=== PATIENT | female | born 1945 | race Caucasian/White ===

== ENCOUNTER 2018-06-03 02:49 | Inpatient (IN) | payer MEDICAID ==
[~2018-06-03] VITALS: Ht 167.6 cm; Wt 133.4 kg
[~2018-06-03 02:49] MED LIST: APIX5TAB PO; ASPI81CH43 PO; ATOR20TA50 PO; CAR3125T PO; DIGO0.1262 PO; DILT180C88 PO; FLUC100T34 PO; FLUT250M2 INH; FURO40TA4 PO; HYDR-531 PO; INSU1INJ4 SC; KETO0.025 EACHEYE; LETR2.5T PO; LEVO750T2 PO; LORA-654 PO; MONT10TA34 PO; NORT25CA PO; PANT40T PO; POTA20TA53 PO
[2018-06-03 06:53] LABS: Chloride 94 mmol/L (98-107); Sodium 135 mmol/L (136-145)
[2018-06-03 07:04] LABS: Alanine Aminotransferase 25 U/L (13-56); Albumin 3.3 g/dL (3.4-5.0); Alkaline Phosphatase 76 U/L (45-117); Anion Gap 7 (5-15); Aspartate Aminotransferase 18 U/L (15-37); BUN/Creatinine Ratio 47.1; Bilirubin, Total 0.6 mg/dL (0.2-1.0); Blood Alcohol < 3.0 mg/dL (0-5); Blood Urea Nitrogen 41 mg/dL (7-18); Calcium 9.8 mg/dL (8.5-10.1); Carbon Dioxide 34 mmol/L (21-32); GFR African American > 60 mL/min; GFR Non-African American > 60 mL/min; Glucose 245 mg/dL (74-106); Magnesium 1.5 mg/dL (1.6-2.6); Total Protein 7.3 g/dL (6.4-8.2)
[2018-06-03 07:56] LABS: Basophils # (auto) 0 uL; Basophils % (auto) 0.3 % (0.0-2.0); Eosinophils # (auto) 0.1 uL; Eosinophils % (auto) 1.4 % (0.0-7.0); Hematocrit 44.6 % (36.0-46.0); Hemoglobin 14.3 g/dL (12.2-16.2); Lymphocytes # (auto) 0.9 uL; Lymphocytes % (auto) 13.1 % (10.0-50.0); Mean Corpuscular Hemoglobin 27.6 pg (28.0-32.0); Mean Corpuscular Hgb Conc. 32.1 g/dL (32.0-36.0); Monocytes # (auto) 0.5 uL; Monocytes % (auto) 7.7 % (0.0-12.0); Neutrophils # (auto) 5.5 uL; Neutrophils % (auto) 77.5 % (37.0-80.0); Nucleated Red Blood Cells % 0.1 %; Platelet Count (auto) 153 10^3/uL (140-450); Red Blood Cells 5.19 10^6/uL (4.0-5.20); Red Cell Distribution Width 14.5 % (11.8-14.3); White Blood Cell 7.1 10^3/uL (4.4-10.8)
[2018-06-03 08:15] LABS: INR 1.07 (0.9-1.15); Partial Thromboplastin Time 25.3 sec (23.78-33.04); Prothrombin Time 11.4 sec (9.27-12.13)
[2018-06-03] MEDS ORDERED: MAGNESIUM SULFATE 1GM/100ML 100 ML IV ONE (08:36)
[2018-06-03 08:52] LABS: Urine Bacteria FEW /hpf (None Seen); Urine Blood Negative /uL (Negative); Urine Hyaline Cast MOD /lpf (0 - 2); Urine Mucus FEW (None Seen); Urine Specific Gravity 1.014 (1.001-1.035); Urine WBC 2 /hpf (0 - 5)
[2018-06-03 08:54] LABS: Alcohol, Urine < 3.0 mg/dL (0-5); Amphetamine Screen, Urine NEGATIVE (NEGATIVE); Barbiturate Scree,Urine NEGATIVE (NEGATIVE); Benzodiazephine Screen, Urine NEGATIVE (NEGATIVE); Cannabinoid Screen, Urine NEGATIVE (NEGATIVE); Cocaine Screen, Urine NEGATIVE (NEGATIVE); Opiate Scree,Urine POSITIVE (NEGATIVE); Phencyclidine Screen, Urine NEGATIVE (NEGATIVE)
[2018-06-03] MEDS: MAGNESIUM SULFATE 1GM/100ML 100 ML IV SCH ×2 (09:19→10:30)
[2018-06-03] MEDS ORDERED: NITROGLYCERIN 0.4 MG SL TAB SL PRN (14:15)
[2018-06-03] MEDS ORDERED: MORPHINE SULFATE 4 MG/ML SYR/VIAL IV PRN (14:15)
[2018-06-03] MEDS ORDERED: ONDANSETRON HCL 4 MG/2 ML VIAL IV PRN (14:15)
[2018-06-03] MEDS ORDERED: DEXTROSE (50%) 50ML SYRG IV PRN (14:30)
[2018-06-03] MEDS: SODIUM CHLORIDE 0.9% 1,000 ML IV SCH (15:15)
[2018-06-03] MEDS: ACCU-CHEK COMFORT CURVE STRIP VI SCH ×2 (17:59→21:47)
[2018-06-03] MEDS: InsuLIN REG 1unit/0.01ml Soln (100units/ml) SC SCH ×2 (18:00→21:47)
[2018-06-03 18:54] VITALS: BP 124/76
--- NOTE | 2018-06-03 19:15 | NUR ---
Opening Shift Note Received report from Nancy BEACH. Assumed care of patient, awake and alert to self and date only. No S/S of distress/SOB or pain. Instructed on POC and to call for assist PRN. Bed in lowest position, side rails up x2, bed alarm on, call light in reach, will continue to monitor for changes Q1hr and PRN.
[2018-06-03] MEDS: ATORVASTATIN 20 MG TAB PO SCH (21:46)
[2018-06-03] MEDS: APIXABAN 5 MG TAB PO SCH (21:46)
[2018-06-03] MEDS: CARVEDILOL 3.125 MG TAB PO SCH (21:47)
[2018-06-03 21:49] VITALS: BP 135/62
--- NOTE | 2018-06-03 22:36 | NUR ---
MRSA swab sent.
--- NOTE | 2018-06-03 23:30 | NUR ---
Patient is confused stating when can she go out from the senior care, she needs to bail out, kept yelling. Patient reoriented and kept comfortable.
[2018-06-04] MEDS: SODIUM CHLORIDE 0.9% 1,000 ML IV SCH ×3 (00:30→20:45)
[2018-06-04] MEDS: MORPHINE SULFATE 4 MG/ML SYR/VIAL IV PRN ×2 (01:29→23:00)
[2018-06-04] MEDS: HYDROcodone-ACET 5/325MG TAB PO PRN (04:25)
[2018-06-04 05:06] VITALS: BP 138/74
[2018-06-04] MEDS: ACCU-CHEK COMFORT CURVE STRIP VI SCH ×4 (06:33→21:50)
[2018-06-04] MEDS: InsuLIN REG 1unit/0.01ml Soln (100units/ml) SC SCH ×4 (06:34→21:51)
--- NOTE | 2018-06-04 07:40 | NUR ---
opening patient in bed, asleep, bed in lowest position will f/u with morning assessment
--- NOTE | 2018-06-04 07:50 | NUR ---
Patient resting at this time, no sob or pain. Endorsed care to Yaquelin BEACH.
[2018-06-04 09:00] VITALS: BP 140/88
[2018-06-04] MEDS ORDERED: DILTIAZEM HCL 180MG ER CAP PO SCH (10:00)
--- NOTE | 2018-06-04 10:44 | NUR ---
WOUND CARE NOTE: Wound care into see patient per wound care request regarding "foot ulcer" that are noted present on admission. Bedside nurse took photograph of patient's multiple skin integrity issue upon admission for reference. Patient is 72 years old female with admitting diagnosis of Metabolic Encephalopathy. She's awake, alert, able to follow direction and able to verbalize needs. She needs assistance in turning and repositioning and her current Jatin score is13. Patient is in no stated pain at this time. Skin assessment done with the help of nurse orthotic assistant. Patient is obese and has deep skin folds. She has multiple intertriginous rashes to skin fold area of legs, abdomen, groin, breast and intragluteal fold. She has 2.5x2cm Open full thickness no measurable depth, Stage 3 pressure injury to R plantar heel area. Wound is red with yellow hyperkeratotic skin to trang wound, no drainage/odor noted. Cleansed with wound cleanser,patted dry with gauze, applied Thera honey gel and covered with Opti foam gentle dressing. Her L lateral foot has 5x2cm intact brown scab, appears to be from old resolving wound, area is clean and dry,left open to air. Her posterior thigh has blanchable redness with scattered old ecchymosis, dry hyperkeratotic skin. Nurse's aid states that she will give patient a bath bath later so application of Barrier cream to skin fold will be done later. Repositioned patient for comfort. Patient tolerated well. RECOMMENDATION: EOD/PRN dressing change to R plantar foot wound, BID/PRN cleaning and application of Barrier cream to sacral/buttocks, intergluteal fold and other skin folds intertrigo per MD order, Dietary consult, frequent turning and repositioning schedule as condition permits, redistribute pressure points with pillows, Bariatric air bed (ordered), continue monitoring by wound care while patient is hospitalized. Addendum: 06/04/18 at 1626 by Pat Wilkinson RN Amended: Links added.
[2018-06-04] MEDS: LEVOFLOXACIN 750MG 150 ML IV SCH (11:10)
[2018-06-04] MEDS: MONTELUKAST SODIUM 10 MG TAB PO SCH (11:11)
[2018-06-04] MEDS: MULTIPLE VITAMIN TAB PO SCH (11:11)
[2018-06-04] MEDS: APIXABAN 5 MG TAB PO SCH ×2 (11:11→21:49)
[2018-06-04] MEDS: ASPirin 81 mg TAB PO SCH (11:11)
[2018-06-04] MEDS: CARVEDILOL 3.125 MG TAB PO SCH ×2 (11:13→21:50)
[2018-06-04 13:00] VITALS: BP 122/74
[2018-06-04] MEDS: LORazepam 0.5 MG TAB PO PRN (16:15)
[2018-06-04 17:00] VITALS: BP 109/61
[2018-06-04] MEDS: ENSURE CLEAR Mixed Berry 8oz Carton PO SCH (18:04)
--- NOTE | 2018-06-04 18:40 | NUR ---
closing patient awake in bed, eating dinner, bed in lowest position, call light within reach. Will endorse care to [facility] nurse at 1900.
--- NOTE | 2018-06-04 19:15 | NUR ---
Opening Shift Note Received report from Yaquelin BEACH. Assumed care of patient, awake and alert. No S/S of distress/SOB or pain. Instructed on POC and to call for assist PRN. Fall precaution measures in place, will continue to monitor for changes Q1hr and PRN.
[2018-06-04] MEDS: ATORVASTATIN 20 MG TAB PO SCH (21:50)
[2018-06-04 22:11] VITALS: BP 132/107
--- NOTE | 2018-06-04 22:15 | NUR ---
Patient transferred to Bariatric bed.
[2018-06-05 05:36] VITALS: BP 137/98
[2018-06-05] MEDS: SODIUM CHLORIDE 0.9% 1,000 ML IV SCH ×2 (06:25→12:12)
[2018-06-05] MEDS: InsuLIN REG 1unit/0.01ml Soln (100units/ml) SC SCH ×4 (06:50→22:00)
[2018-06-05] MEDS: ACCU-CHEK COMFORT CURVE STRIP VI SCH ×4 (06:50→22:00)
--- NOTE | 2018-06-05 07:30 | NUR ---
Care endorsed to Bebo BEACH.
[2018-06-05] MEDS: ENSURE CLEAR Mixed Berry 8oz Carton PO SCH ×2 (08:00→18:45)
--- NOTE | 2018-06-05 08:00 | NUR ---
Opening Shift Note Assumed care of patient, awake and alert. No S/S of distress/SOB, 10/10 chronic back pain. Will medicate with Morphine IV as ordered. Turned to sides every 2 hours. Instructed on POC and to call for assist PRN, will continue to monitor for changes Q1hr and PRN.
[2018-06-05] MEDS: MORPHINE SULFATE 4 MG/ML SYR/VIAL IV PRN (08:09)
--- NOTE | 2018-06-05 09:00 | NUR ---
Patient refused blood drawn at this time. Dr. Hernández made aware.
[2018-06-05 09:34] LABS: Folate (Folic Acid) 11.89 ng/mL (5.38-24)
[2018-06-05 09:41] VITALS: BP 117/87
[2018-06-05] MEDS: LEVOFLOXACIN 750MG 150 ML IV SCH (09:43)
[2018-06-05] MEDS: APIXABAN 5 MG TAB PO SCH ×2 (09:44→22:35)
[2018-06-05] MEDS: DIGOXIN 0.125 MG TAB PO SCH (09:44)
[2018-06-05] MEDS: PANTOPRAZOLE 40 MG TAB PO SCH (09:44)
[2018-06-05] MEDS: MULTIPLE VITAMIN TAB PO SCH (09:44)
[2018-06-05] MEDS: POTASSIUM CHL 20 Meq TABLET PO SCH (09:44)
[2018-06-05] MEDS: ASPirin 81 mg TAB PO SCH (09:44)
[2018-06-05] MEDS: CARVEDILOL 3.125 MG TAB PO SCH ×2 (09:45→22:36)
[2018-06-05] MEDS: FUROSEMIDE 40 MG TAB PO SCH (09:46)
[2018-06-05] MEDS: MONTELUKAST SODIUM 10 MG TAB PO SCH (09:46)
[2018-06-05] MEDS ORDERED: ALBUTEROL SULF 2.5 MG/0.5ML(0.5%) NEB SOLN NEB PRN (12:00)
[2018-06-05] MEDS ORDERED: IPRATROPIUM BROM 0.5 MG/2.5ML INH SOL NEB PRN (12:00)
--- NOTE | 2018-06-05 12:25 | NUR ---
NUTRITION CONSULT/ASSESSMENT NOTES Please refer to link notes of nutrition screen form filed under the intervention section of the plan of care for further details. Est. Needs based on AdBW (77 kg): 1550 kcal to 1950 kcal (20-25 kcal/kgAdBW), 77 gms to 100 gms pro (1.0-1.3 gms/kgAdBW for wound healing). Will continue to monitor pertinent labs and reassess nutrient needs prn Thank you for this consult. Addendum: 06/05/18 at [address] Amended: Links added.
[2018-06-05] MEDS: HYDROcodone-ACET 5/325MG TAB PO PRN (12:49)
[2018-06-05 13:22] LABS: Basophils # (auto) 0 uL; Basophils % (auto) 0.9 % (0.0-2.0); Eosinophils # (auto) 0.2 uL; Eosinophils % (auto) 3.4 % (0.0-7.0); Hematocrit 42.3 % (36.0-46.0); Hemoglobin 13.7 g/dL (12.2-16.2); Lymphocytes # (auto) 1.5 uL; Lymphocytes % (auto) 28.6 % (10.0-50.0); Mean Corpuscular Hemoglobin 27.3 pg (28.0-32.0); Mean Corpuscular Hgb Conc. 32.3 g/dL (32.0-36.0); Mean Corpuscular Volume 84.5 fL (80.0-100.0); Monocytes # (auto) 0.4 uL; Monocytes % (auto) 8.1 % (0.0-12.0); Neutrophils # (auto) 3.2 uL; Nucleated Red Blood Cells % 0.1 %; Platelet Count (auto) 162 10^3/uL (140-450); Red Blood Cells 5.01 10^6/uL (4.0-5.20); Red Cell Distribution Width 14.8 % (11.8-14.3); White Blood Cell 5.4 10^3/uL (4.4-10.8)
[2018-06-05 13:33] LABS: Anion Gap 4 (5-15); BUN/Creatinine Ratio 23.1; Blood Urea Nitrogen 12 mg/dL (7-18); Calcium 9.9 mg/dL (8.5-10.1); Carbon Dioxide 35 mmol/L (21-32); Chloride 99 mmol/L (98-107); Glucose 209 mg/dL (74-106); Potassium 3.9 mmol/L (3.5-5.1); Sodium 138 mmol/L (136-145)
[2018-06-05 13:38] VITALS: BP 129/75
[2018-06-05 13:49] LABS: GFR African American > 60 mL/min; GFR Non-African American > 60 mL/min
[2018-06-05 17:17] VITALS: BP 127/77
--- NOTE | 2018-06-05 19:00 | NUR ---
Respiratory note: PT ALERT AND AWAKE. PT HR 107 RR 18 SPO2 100% ON 2LPM NC BS CLEAR DIMINISHED BILATERALLY. PRN MED NEB TX NOT INDICATED AT THIS TIME. PT REMAINS STABLE WILL CONTINUE TO MONITOR PT ORDERED.
--- NOTE | 2018-06-05 19:45 | NUR ---
open note assumed care of pt. upon entering room pt eyes closed, breathing even and unlabored, o2 at 2L NC running. no s/s distress noted. call light in reach. will continue to monitor.
[2018-06-05 21:35] VITALS: BP 127/77
[2018-06-05] MEDS: ASCORBIC ACID 500 MG TAB PO SCH (22:35)
[2018-06-05] MEDS: ATORVASTATIN 20 MG TAB PO SCH (22:35)
[2018-06-05 22:59] VITALS: BP 143/83
[2018-06-06] MEDS: LORazepam 0.5 MG TAB PO PRN ×2 (02:10→21:48)
[2018-06-06] MEDS: LACTULOSE 20Gm/30ML SOLN PO PRN ×2 (03:18→10:47)
[2018-06-06] MEDS: SODIUM CHLORIDE 0.9% 1,000 ML IV SCH (04:25)
[2018-06-06 05:24] VITALS: BP 125/61
[2018-06-06] MEDS: MORPHINE SULFATE 4 MG/ML SYR/VIAL IV PRN (05:40)
[2018-06-06] MEDS: InsuLIN REG 1unit/0.01ml Soln (100units/ml) SC SCH ×4 (06:42→21:48)
[2018-06-06] MEDS: ACCU-CHEK COMFORT CURVE STRIP VI SCH ×4 (06:42→21:47)
--- NOTE | 2018-06-06 07:10 | NUR ---
Opening Shift Note Assumed care of patient, sleeping, respirations even with no S/S of distress. N/C intact and delivering 2L O2. Call light within reach, will continue to monitor for changes Q1hr and PRN.
[2018-06-06 07:30] VITALS: BP 107/54
--- NOTE | 2018-06-06 07:31 | NUR ---
PT AWAKE AND ALERT AT THIS TIME IN NO RESPIRATORY DISTRESS. PT WAS ASSESSED FOR PRN MED NEB TX. PT. IS ON 2 L NC WITH A SPO2 100%, WITH DIMINISHED BS, HR 7378, RR 22. PT MADE AWARE OF PRN MED NEB. WILL CONTINUE TO MONITOR PT.
[2018-06-06] MEDS: ENSURE CLEAR Mixed Berry 8oz Carton PO SCH ×2 (08:00→18:00)
--- NOTE | 2018-06-06 08:06 | NUR ---
Per Siobhan SANDOVAL, patient is refusing blood pressure assessment at this time. Will attempt again in 1 hour
[2018-06-06 09:00] VITALS: BP 154/68
[2018-06-06] MEDS ORDERED: DOCUSATE SOD 100 MG CAP PO ONE (10:45)
[2018-06-06] MEDS: PANTOPRAZOLE 40 MG TAB PO SCH (10:47)
[2018-06-06] MEDS: FUROSEMIDE 40 MG TAB PO SCH (10:47)
[2018-06-06] MEDS: ASCORBIC ACID 500 MG TAB PO SCH ×2 (10:47→21:47)
[2018-06-06] MEDS: DIGOXIN 0.125 MG TAB PO SCH (10:47)
[2018-06-06] MEDS: ASPirin 81 mg TAB PO SCH (10:47)
[2018-06-06] MEDS: MONTELUKAST SODIUM 10 MG TAB PO SCH (10:47)
[2018-06-06] MEDS: APIXABAN 5 MG TAB PO SCH ×2 (10:48→21:47)
[2018-06-06] MEDS: CARVEDILOL 3.125 MG TAB PO SCH ×2 (10:48→21:46)
[2018-06-06] MEDS: MULTIPLE VITAMIN TAB PO SCH (10:48)
[2018-06-06] MEDS: POTASSIUM CHL 20 Meq TABLET PO SCH (10:48)
--- NOTE | 2018-06-06 12:03 | NUR ---
I faxed SNF order to [facility], [facility], [facility], [facility] and [facility] Hern[facility]dez.
[2018-06-06 13:00] VITALS: BP 123/87
[2018-06-06] MEDS ORDERED: MAGNESIUM SULFATE 1GM/100ML 100 ML IV ONE (13:30)
--- NOTE | 2018-06-06 15:47 | NUR ---
CALLED [facility] TO FOLLOW UP ON SNF PLACEMENT, NO BEDS AVAILABLE YET.
[2018-06-06 17:00] VITALS: BP 107/70
--- NOTE | 2018-06-06 19:50 | NUR ---
Opening Shift Note Assumed care of patient, awake and alert. No S/S of distress/SOB or pain. Instructed on POC and to call for assist PRN. Bed in lowest locked position, call light within reach, side rails up x2. Will continue to monitor for changes Q1hr and PRN.
--- NOTE | 2018-06-06 21:25 | NUR ---
RT NOTE PT WAS SEEN BY RT FOR PRN HHN TX. PT STATES NO TREATMENT NEEDED AT THIS TIME. NO SOB OR DISTRESS NOTED. NO TREATMENT INDICATED. HR 103, RR 18, BS CLEAR/DIM, POX 97%. PT AWARE TO CALL IF TX NEEDED. CONT ORDERED Addendum: 06/06/18 at 2317 by Kelsey Shin RT Amended: Links added.
[2018-06-06] MEDS: DOCUSATE SOD 100 MG CAP PO SCH (21:46)
[2018-06-06] MEDS: ATORVASTATIN 20 MG TAB PO SCH (21:47)
[2018-06-06 22:40] VITALS: BP 112/72
[2018-06-06] MEDS: HYDROcodone-ACET 5/325MG TAB PO PRN (23:56)
[2018-06-07] VITALS (8 sets, daily range): BP systolic 103–133; BP diastolic 59–96
[2018-06-07] MEDS: ACCU-CHEK COMFORT CURVE STRIP VI SCH ×4 (06:48→22:01)
[2018-06-07] MEDS: InsuLIN REG 1unit/0.01ml Soln (100units/ml) SC SCH ×4 (06:49→22:02)
[2018-06-07] MEDS: ENSURE CLEAR Mixed Berry 8oz Carton PO SCH ×2 (08:00→18:00)
[2018-06-07] MEDS: APIXABAN 5 MG TAB PO SCH ×2 (09:37→21:59)
[2018-06-07] MEDS: MONTELUKAST SODIUM 10 MG TAB PO SCH (09:37)
[2018-06-07] MEDS: ASCORBIC ACID 500 MG TAB PO SCH ×2 (09:37→22:01)
[2018-06-07] MEDS: ASPirin 81 mg TAB PO SCH (09:37)
[2018-06-07] MEDS: PANTOPRAZOLE 40 MG TAB PO SCH (09:38)
[2018-06-07] MEDS: POTASSIUM CHL 20 Meq TABLET PO SCH (09:38)
[2018-06-07] MEDS: DOCUSATE SOD 100 MG CAP PO SCH ×2 (09:38→21:58)
[2018-06-07] MEDS: HYDROcodone-ACET 5/325MG TAB PO PRN ×2 (09:38→17:51)
[2018-06-07] MEDS: MULTIPLE VITAMIN TAB PO SCH (09:39)
[2018-06-07] MEDS: CARVEDILOL 3.125 MG TAB PO SCH ×2 (09:39→21:59)
[2018-06-07] MEDS: FUROSEMIDE 40 MG TAB PO SCH (09:39)
[2018-06-07] MEDS: DIGOXIN 0.125 MG TAB PO SCH (09:39)
--- NOTE | 2018-06-07 09:53 | NUR ---
assessment Patient is a 72 year old female who is alert and oriented. Patients cognitive abilities are intact. Prior to admission patient lived home with her Conor and functioned with assistance. Per patient she has an SS caregiver with 80 hours per month. Patient has a fww, scooter and 02 for home use. Patient informed me she was ambulating 6 months ago until she fell ill and has been weak since then. Patient is requesting rehab. Patient wants to be able to ambulate again. I informed patient she has a right to speak to a web content & social media manager regarding all care. I informed patient she has a right to participate in any and all discharge planning. Patient is aware of visiting hours on the hospital floor. I informed patient she has a right to privacy. Patient does not have a POA and advanced directive. I have offered patient information on POA and advanced directives. I informed the patient the advantages and benefits of having an Advanced Directive. Patient verbalized understanding and agreed to discharge plan. Addendum: 06/09/18 at 0956 by Jeannie GRIFFIN Amended: Links added.
[2018-06-07] MEDS: FEMARA 2.5 MG PO SCH (10:00)
[2018-06-07] MEDS ORDERED: DILTIAZEM HCL 120MG ER CAP PO SCH (10:00)
--- NOTE | 2018-06-07 10:30 | NUR ---
CALLED [facility] AND LEFT A MESSAGE TO FOLLOW UP ON PATIENT'S TRANSFER STATUS, AWAITING FOR REPLY.
[2018-06-07] MEDS ORDERED: BISACODYL 10 MG RECT SUPP PR ONE (11:00)
[2018-06-07] MEDS ORDERED: DILTIAZEM HCL 60 MG TAB PO SCH (11:00)
[2018-06-07] MEDS ORDERED: DILTIAZEM HCL 120MG ER CAP PO ONE (12:45)
--- NOTE | 2018-06-07 19:40 | NUR ---
Opening Shift Note Assumed care of patient, awake and alert. No S/S of distress/SOB or pain. Instructed on POC and to call for assist PRN. Bed in lowest locked position, call light within reach, side rails up x2, fall precautions in place. Will continue to monitor for changes Q1hr and PRN.
[2018-06-07] MEDS: ATORVASTATIN 20 MG TAB PO SCH (21:59)
[2018-06-07] MEDS: LORazepam 0.5 MG TAB PO PRN (22:02)
--- NOTE | 2018-06-08 | NUR ---
Hospitalist paged for patient complaint of 10/10 pain on shoulders. Awaiting call back.
--- NOTE | 2018-06-08 00:20 | NUR ---
Hospitalist called back MEAT PICKLER Antonio updated on patient's status. New orders received, continue care.
[2018-06-08] MEDS ORDERED: IBUPROFEN 600 MG TAB PO ONE (00:30)
[2018-06-08] MEDS: HYDROcodone-ACET 5/325MG TAB PO PRN ×2 (02:52→15:49)
[2018-06-08 05:00] VITALS: BP 118/60
[2018-06-08] MEDS: ACCU-CHEK COMFORT CURVE STRIP VI SCH ×4 (07:02→21:35)
[2018-06-08] MEDS: InsuLIN REG 1unit/0.01ml Soln (100units/ml) SC SCH ×4 (07:02→21:34)
[2018-06-08] MEDS: ENSURE CLEAR Mixed Berry 8oz Carton PO SCH ×2 (07:45→17:16)
--- NOTE | 2018-06-08 08:00 | NUR ---
Opening Shift Note Assumed care of patient, awake and alert. No S/S of distress/SOB or pain. Instructed on POC and to call for assist PRN, will continue to monitor for changes Q1hr and PRN. Speciality mattress present. Bed is in the lowest position and call light is within reach. Loredo catheter present and hanging to gravity.
[2018-06-08 08:58] VITALS: BP 123/70
[2018-06-08] MEDS: APIXABAN 5 MG TAB PO SCH ×2 (09:59→21:34)
[2018-06-08] MEDS: DILTIAZEM HCL 120MG ER CAP PO SCH (09:59)
[2018-06-08] MEDS: PANTOPRAZOLE 40 MG TAB PO SCH (10:00)
[2018-06-08] MEDS: FEMARA 2.5 MG PO SCH (10:00)
[2018-06-08] MEDS: ASPirin 81 mg TAB PO SCH (10:00)
[2018-06-08] MEDS: MONTELUKAST SODIUM 10 MG TAB PO SCH (10:00)
[2018-06-08] MEDS: CARVEDILOL 3.125 MG TAB PO SCH ×2 (10:00→21:34)
[2018-06-08] MEDS: ASCORBIC ACID 500 MG TAB PO SCH ×2 (10:01→21:34)
[2018-06-08] MEDS: MULTIPLE VITAMIN TAB PO SCH (10:01)
[2018-06-08] MEDS: POTASSIUM CHL 20 Meq TABLET PO SCH (10:01)
[2018-06-08] MEDS: DOCUSATE SOD 100 MG CAP PO SCH ×2 (10:01→21:33)
[2018-06-08] MEDS: FUROSEMIDE 40 MG TAB PO SCH (10:01)
[2018-06-08] MEDS: DIGOXIN 0.125 MG TAB PO SCH (10:01)
--- NOTE | 2018-06-08 10:34 | NUR ---
Campus President Called/paged Campus President Jazmin Cedeno called re: patient placement. Waiting for call back. Continue care.
--- NOTE | 2018-06-08 10:45 | NUR ---
I called [facility] transit planner Will and left message asking for authorization for SNF placement, awaiting return call.
[2018-06-08 12:01] VITALS: BP 115/68
--- NOTE | 2018-06-08 14:43 | NUR ---
Wound dressing changed as ordered Patient tolerated well will continue to monitor.
--- NOTE | 2018-06-08 14:43 | NUR ---
Barrier cream applied as ordered
[2018-06-08] MEDS: LACTULOSE 20Gm/30ML SOLN PO PRN (15:49)
--- NOTE | 2018-06-08 15:58 | NUR ---
called Dr. Hernández aware of patient c/o constipation No new orders received at this time Will continue to monitor.
--- NOTE | 2018-06-08 16:32 | NUR ---
re-assessment Per Melissa at [facility] she may have a bed in the morning. Per Lolly at [facility] she may have a bed in the morning also. Per Karen at [facility] and [facility] she is checking on availability and will call back. Addendum: 06/08/18 at 1636 by Jeannie GRIFFIN Amended: Links added.
--- NOTE | 2018-06-08 16:51 | NUR ---
re-assessment Per Karen at [facility] they cannot accept patient. Addendum: 06/08/18 at 1654 by Jeannie GRIFFIN Amended: Links added.
[2018-06-08 16:53] VITALS: BP 119/64
--- NOTE | 2018-06-08 18:48 | NUR ---
End of shift note patient awake and alert. No S/S of distress/SOB or pain. Bed is in the lowest position and call light is within reach. Family at bedside at this time. Care endorsed to night RN.
--- NOTE | 2018-06-08 18:50 | NUR ---
per patient's friend patient is approved for hospice Per friend Daija Ibarra (phone number [phone]), patient has been approved for [facility] (phone number [phone]) since Jun 01. hospice #: [id number]
--- NOTE | 2018-06-08 19:00 | NUR ---
Opening Shift Note Assumed care of the patient from the day shift RN. The patient is A&Ox4, no signs or symptoms of distress. The patient's is at bedside. Educated the patient and on POC and patient verbalized understanding. The patient's call light is within reach and bed is in the lowest, locked position. Will round hourly and continue to monitor.
[2018-06-08 20:00] VITALS: BP 127/66
[2018-06-08] MEDS: LORazepam 0.5 MG TAB PO PRN (20:15)
--- NOTE | 2018-06-08 21:00 | NUR ---
Respiratory note: PT ASSESSED FOR PRN MED NEB TX. HR 87, RR 16, SPO2 98% ON 2L NC, BS CLEAR/DIMINISHED. NO SIGN OF [place] RESPIRATORY DISTRESS NOTED. ADVISED PT TO PLEASE CALL IF NEEDED.
[2018-06-08] MEDS: ATORVASTATIN 20 MG TAB PO SCH (21:34)
[2018-06-08 22:00] VITALS: BP 127/66
[2018-06-09] VITALS (7 sets, daily range): BP systolic 99–127; BP diastolic 43–71
[2018-06-09] MEDS: HYDROcodone-ACET 5/325MG TAB PO PRN ×3 (06:28→23:21)
[2018-06-09] MEDS: ACCU-CHEK COMFORT CURVE STRIP VI SCH ×4 (06:30→23:08)
[2018-06-09] MEDS: InsuLIN REG 1unit/0.01ml Soln (100units/ml) SC SCH ×4 (06:30→22:00)
--- NOTE | 2018-06-09 08:00 | NUR ---
Opening Shift Note Assumed care of patient, awake and alert. No S/S of distress/SOB or pain. Instructed on POC and to call for assist PRN, will continue to monitor for changes Q1hr and PRN. Speciality mattress present. Bed is in the lowest position and call light is within reach. Loredo catheter present, free of kinks and hanging to gravity.
[2018-06-09] MEDS: ENSURE CLEAR Mixed Berry 8oz Carton PO SCH ×2 (08:59→18:03)
--- NOTE | 2018-06-09 09:02 | NUR ---
Per Diem Physical Therapist Assistant Called/opal Wu Per Diem Physical Therapist Assistant called re:update on patient's hospice status . Waiting for call back. Continue care.
[2018-06-09] MEDS: ASCORBIC ACID 500 MG TAB PO SCH ×2 (09:15→23:07)
[2018-06-09] MEDS: ASPirin 81 mg TAB PO SCH (09:15)
[2018-06-09] MEDS: FEMARA 2.5 MG PO SCH (09:15)
[2018-06-09] MEDS: PANTOPRAZOLE 40 MG TAB PO SCH (09:16)
[2018-06-09] MEDS: FUROSEMIDE 40 MG TAB PO SCH (09:16)
[2018-06-09] MEDS: MONTELUKAST SODIUM 10 MG TAB PO SCH (09:16)
[2018-06-09] MEDS: APIXABAN 5 MG TAB PO SCH ×2 (09:16→23:07)
[2018-06-09] MEDS: MULTIPLE VITAMIN TAB PO SCH (09:16)
[2018-06-09] MEDS: POTASSIUM CHL 20 Meq TABLET PO SCH (09:17)
[2018-06-09] MEDS: DILTIAZEM HCL 120MG ER CAP PO SCH (09:17)
[2018-06-09] MEDS: CARVEDILOL 3.125 MG TAB PO SCH ×2 (09:17→22:00)
[2018-06-09] MEDS: DIGOXIN 0.125 MG TAB PO SCH (09:18)
[2018-06-09] MEDS: DOCUSATE SOD 100 MG CAP PO SCH ×2 (09:18→23:06)
--- NOTE | 2018-06-09 10:00 | NUR ---
Barrier cream applied as ordered. Will continue to monitor
--- NOTE | 2018-06-09 10:40 | NUR ---
Dr. Hernández at bedside to see patient POC discussed with patient
[2018-06-09] MEDS ORDERED: HYDROcodone-ACET 5/325MG TAB PO PRN (11:30)
--- NOTE | 2018-06-09 12:29 | NUR ---
I called [facility] and spoke with Zi in Admitting, he said they can not accommodate this patient. I called [facility] and spoke with Cyn, she said they will have a female bed available later [id number] her clinical information as requested.
--- NOTE | 2018-06-09 12:51 | NUR ---
Called/paged Dr. CRAIG called re:patient c/o 12/23 shoulder pain. Pain medication not due yet. Waiting for call back. Continue care.
--- NOTE | 2018-06-09 13:00 | NUR ---
returned call Dr. Hernández returned call, updated on patient status and reason for call, orders received for Hydrocodone 5/325 mg tab [id number] PRN. Continue care.
--- NOTE | 2018-06-09 16:23 | NUR ---
Per [facility] Lunch Truck Driver Patient is approved to go to [facility]. phone number Room number 231B. [facility] Phone number [phone] off # [phone]. Facility [id number] Patient is to go after 9pm tonight. Will endorse to production shift supervisor
--- NOTE | 2018-06-09 19:42 | NUR ---
RT NOTE PT WAS SEEN BY RT FOR PRN HHN TX. PT STATES NO TX NEEDED AT THIS TIME. HR 94, RR 18, BS CLEAR/DIM, POX 98% ON 2.5 L. NO SOB OR DISTRESS NOTED. PT WILL CALL IF TX NEEDED. CONT ORDERED Addendum: 06/09/18 at 2038 by Kelsey Shin RT Amended: Links added.
--- NOTE | 2018-06-09 20:21 | NUR ---
[facility] Hospitalist The patient and family are refusing transfer for tonight and want her to be transferred in the morning. The patient was to be transferred to [facility]. The patient is distressed about being transferred at night and family feels she is too anxious to be transferred right now. They wish for the discharge and transferred for the AM.
--- NOTE | 2018-06-09 22:00 | NUR ---
Discharge/Transfer held until the AM Hospitalist held DC/transfer for the AM
[2018-06-09] MEDS: ATORVASTATIN 20 MG TAB PO SCH (23:07)
[2018-06-09] MEDS: LORazepam 0.5 MG TAB PO PRN (23:08)
[2018-06-10 05:00] VITALS: BP 99/49
[2018-06-10] MEDS: HYDROcodone-ACET 5/325MG TAB PO PRN ×2 (05:25→11:23)
[2018-06-10] MEDS: InsuLIN REG 1unit/0.01ml Soln (100units/ml) SC SCH ×2 (06:48→11:30)
[2018-06-10] MEDS: ACCU-CHEK COMFORT CURVE STRIP VI SCH ×2 (06:49→11:30)
--- NOTE | 2018-06-10 07:15 | NUR ---
Received report from warehouse shift supervisor YONG Sandra that patient is supposed to be transferred to [facility] yesterday but patient not ready. Will follow up.
[2018-06-10] MEDS: ENSURE CLEAR Mixed Berry 8oz Carton PO SCH ×2 (08:00→08:12)
--- NOTE | 2018-06-10 08:10 | NUR ---
Patient sleeping at this time. No acute distress noted. Patient is a feeder as per report.
--- NOTE | 2018-06-10 08:26 | NUR ---
Patient's Dejuanmiguel ([phone]) called regarding update of the patient's transfer. Will call the facility.
--- NOTE | 2018-06-10 08:30 | NUR ---
Patient stated she's ready to be transferred today.
--- NOTE | 2018-06-10 09:19 | NUR ---
Called [facility]. Spoke with Cyn. Cyn asked for the patient's weight and height, patient going to Room 213A, call for report at [phone]. Will follow up on [facility].
[2018-06-10 09:24] VITALS: BP 92/68
--- NOTE | 2018-06-10 09:26 | NUR ---
Called [facility] ([phone]). Spoke with Kathy. Kathy said transport ETA at 1:00 pm today to bulk picker the patient for transfer to [facility].
--- NOTE | 2018-06-10 09:45 | NUR ---
Report given to Aixa Puente to be cautious giving narcotic or sedative to patient due to episodes of lethargy.
--- NOTE | 2018-06-10 09:45 | NUR ---
Called [facility] ([phone]). Report given to Aixa that patient is morbidly obese, on specialty bed, with DTI on right heel, with Loredo catheter inserted at ER on 06/03/2018; patient on Loredo catheter at home for prolonged immobilization, on O2 at 2 LPM; on home O2 as well. [facility] ETA at 1:00 PM.
--- NOTE | 2018-06-10 09:45 | NUR ---
Report given to Aixa at [facility] that patient needs assist with feeding; right hand weakness.
--- NOTE | 2018-06-10 09:55 | NUR ---
Patient asked for pain medication. Explained to patient [place] 5/325 PO not due at this time.
[2018-06-10] MEDS: FEMARA 2.5 MG PO SCH (10:00)
[2018-06-10] MEDS: CARVEDILOL 3.125 MG TAB PO SCH (10:00)
--- NOTE | 2018-06-10 10:00 | NUR ---
Patient speaking with on cellphone.
[2018-06-10] MEDS: FUROSEMIDE 40 MG TAB PO SCH (10:04)
[2018-06-10] MEDS: MULTIPLE VITAMIN TAB PO SCH (10:05)
[2018-06-10] MEDS: PANTOPRAZOLE 40 MG TAB PO SCH (10:05)
[2018-06-10] MEDS: ASCORBIC ACID 500 MG TAB PO SCH (10:05)
[2018-06-10] MEDS: ASPirin 81 mg TAB PO SCH (10:05)
[2018-06-10] MEDS: APIXABAN 5 MG TAB PO SCH (10:05)
[2018-06-10] MEDS: DOCUSATE SOD 100 MG CAP PO SCH (10:05)
[2018-06-10] MEDS: DIGOXIN 0.125 MG TAB PO SCH (10:05)
[2018-06-10] MEDS: MONTELUKAST SODIUM 10 MG TAB PO SCH (10:05)
[2018-06-10] MEDS: POTASSIUM CHL 20 Meq TABLET PO SCH (10:05)
[2018-06-10] MEDS: DILTIAZEM HCL 120MG ER CAP PO SCH (10:06)
--- NOTE | 2018-06-10 11:25 | NUR ---
Patient stated her pain level at 9/10 at this time. [place] 5/325 PO given as ordered.
--- NOTE | 2018-06-10 11:38 | NUR ---
Photos taken of the right heel, right upper extremity, right side of the neck. Cleaned the right heel with NS, pat dry with sterile gauze, opti foam applied. Wound Care forms placed on the Wound Care tray. Camera returned to Herminia.
[2018-06-10 12:49] VITALS: BP 122/73
--- NOTE | 2018-06-10 13:45 | NUR ---
[facility] came over.
--- NOTE | 2018-06-10 14:00 | NUR ---
Discharge instructions given as ordered. Encourage to follow up with PMD as instructed. All questions and concerns addressed. Patient verbalized understanding. Medication reconciliation form completed and copy given [facility] personnel to endorse to [facility]. IV removed with catheter intact, pressure dressing applied. Patient discharged with Loredo catheter as ordered for prolonged immobilization. Telemetry unit returned to [facility]. Patient taken to vehicle via gurney with all personal belongings (personal belongings placed in five plastic bags including her cellphone), accompanied by transport personnel. On O2 at 2 LPM. No distress noted at time of departure.
== END 2018-06-10 13:58 | DRG 422 ==
LOC: EDUNIT# 02:49 → EDBD 02:49 → ER 02:49 → TELE 14:22 → TELE-EAST 17:47
PROVIDERS: ADMIT Nurse Practitioner Acute Care; ATTEND Internal Medicine
DX: E86.0 Dehydration (principal); G93.41 Metabolic encephalopathy; E44.0 Moderate protein-calorie malnutrition; J96.10 Chronic respiratory failure, unspecified whether with hypoxia or hypercapnia; E11.21 Type 2 diabetes mellitus with diabetic nephropathy; E11.65 Type 2 diabetes mellitus with hyperglycemia; I48.2 Chronic atrial fibrillation; E87.5 Hyperkalemia; E66.2 Morbid (severe) obesity with alveolar hypoventilation; E11.22 Type 2 diabetes mellitus with diabetic chronic kidney disease; I13.0 Hypertensive heart and chronic kidney disease with heart failure and stage 1 through stage 4 chronic kidney disease, or unspecified chronic kidney disease; I50.42 Chronic combined systolic (congestive) and diastolic (congestive) heart failure; R33.9 Retention of urine, unspecified; F41.9 Anxiety disorder, unspecified; N18.9 Chronic kidney disease, unspecified; J44.9 Chronic obstructive pulmonary disease, unspecified; E78.5 Hyperlipidemia, unspecified; G31.9 Degenerative disease of nervous system, unspecified; I89.0 Lymphedema, not elsewhere classified; I25.2 Old myocardial infarction; Z99.81 Dependence on supplemental oxygen; Z99.3 Dependence on wheelchair; K59.00 Constipation, unspecified; Z85.42 Personal history of malignant neoplasm of other parts of uterus; Z79.01 Long term (current) use of anticoagulants; Z79.51 Long term (current) use of inhaled steroids; Z79.82 Long term (current) use of aspirin; Z79.899 Other long term (current) drug therapy; Z68.42 Body mass index [BMI] 45.0-49.9, adult; I69.351 Hemiplegia and hemiparesis following cerebral infarction affecting right dominant side
CPT/HCPCS: 36415; 36600; 51702; 70450; 71045; 80048; 80053; 80162; 80307; 80320; 81001; 82306; 82607; 82746; 82805; 82962; 83036; 83605; 83735; 84207; 84484; 85025; 85610; 85652; 85730; 86141; 87081; 93005; 93970; 93971; 94640; 96374; 97163; A6257; G0378; J1815; J1956